=== PATIENT | male | born 2000 | race Two or more races ===

== ENCOUNTER 2020-03-17 06:24 | Emergency (ER) | payer OTHER ==
[~2020-03-17] VITALS: Ht 170.2 cm; Wt 75.3 kg
[2020-03-17 06:28] VITALS: BP 123/78
--- NOTE | 2020-03-17 06:39 | NUR ---
PT TO ED WITH C/O LEFT SIDED CHEST PAIN THAT STARTED AROUND 0500 WHILE AT WORK. NO FEVER, COUGH, SHORTNESS OF BREATH. NO INJURY OR TRAUMA. OTHERWISE HEALTHY. NKA.
--- NOTE | 2020-03-17 06:50 | NUR ---
REPORT GIVEN TO CONCEPCION DAVID
--- NOTE | 2020-03-17 06:53 | NUR ---
RECEIVED REPORT FROM LEIDA. PT UPRIGHT ON GURNEY WITH EYES CLOSED, RESPONDS APPROP TO STAFF, NAD, NO NEEDS AT THIS TIME, MOM AT BS, CALL LIGHT WITHIN REACH.
[2020-03-17] MEDS ORDERED: IBUPROFEN 200 MG TABLET ONE (06:59)
[2020-03-17] MEDS ORDERED: IBUPROFEN 200 MG TABLET PO ONE (07:00)
--- NOTE | 2020-03-17 08:02 | NUR ---
Patient given discharge instructions and Rx, they have confirmed that they understand the instructions. Patient ambulatory with steady gait.
== END 2020-03-17 08:03 | disposition home or self-care (01) ==
LOC: ED 06:52
DX: M94.0 Chondrocostal junction syndrome [Tietze] (principal); R07.89 Other chest pain; R94.31 Abnormal electrocardiogram [ECG] [EKG]
CPT/HCPCS: 71045; 93005; 99283